=== PATIENT | female | born 1955 | race African-American/Black ===

== ENCOUNTER 2017-10-26 13:31 | Emergency (ER) | payer MEDICARE, MEDICAID ==
[~2017-10-26] VITALS: Ht 154.9 cm; Wt 73.0 kg
[~2017-10-26 13:31] MED LIST: AMLODIPINE; ASPIRIN; CALCIUM; METH500T6; MVI; TRAM50TA3; TRIAMTERENE
[2017-10-26 13:40] VITALS: BP 179/109
[2017-10-26] MEDS ORDERED: ACETAMINOPHEN 325MG TABLET PO ONE (14:30)
== END 2017-10-26 15:23 | disposition home or self-care (01) ==
LOC: ER 15:23
DX: S80.872A Other superficial bite, left lower leg, initial encounter (principal); I10 Essential (primary) hypertension; Z79.82 Long term (current) use of aspirin; W54.0XXA Bitten by dog, initial encounter; Y93.89 Activity, other specified; Y92.018 Other place in single-family (private) house as the place of occurrence of the external cause
CPT/HCPCS: 99283